=== PATIENT | female | born 1975 | race Caucasian/White ===

== ENCOUNTER 2016-03-27 09:41 | Emergency (ER) | payer BC, OTHER ==
[~2016-03-27] VITALS: Ht 172.7 cm; Wt 63.6 kg
[~2016-03-27 09:41] MED LIST: PROP20 PO
[2016-03-27 09:42] VITALS: BP 181/82; PULSE 202; RESP 17; TEMP 97.7; O2SAT 95
[2016-03-27 09:45] VITALS: BP 131/101; PULSE 134; RESP 20; O2SAT 100
[2016-03-27] MEDS ORDERED: ADENOSINE IV SOLN 3 MG/ML 2 ML VIAL ONE (09:47)
[2016-03-27 09:55] VITALS: BP 131/93; PULSE 107; RESP 18; O2SAT 100
[2016-03-27] MEDS ORDERED: SODIUM CHLORIDE 0.9% FLUSH 5 ML FLUSH IVF PRN (10:15)
--- NOTE | 2016-03-27 10:20 | PD ---
HPI Chief Complaint: Cardiac Complaint Time Seen by Provider: 10:02 Travel History International Travel<30 days: No Contact w/Intl Traveler<30days: No Traveled to known affect area: No History of Present Illness HPI 40-year-old female with history of SVTs, presents to the ER today because she had palpitations at work, and feels that it was her SVT, she had tried to use vagal maneuvers but without success. She denies significant caffeine intake today, is not sure of the trigger. She states that however, it stopped on its own while she was in the ER. She reports feeling improved. She is known by Dr. Mcknight who is in the ER, states that if workup is unremarkable, patient can be released with Lopressor for further treatment. Patient apparently had been on Inderal which was changed to another medication recently. Modifying Factors: None Associated Signs & Symptoms: Palpitation, chest discomfort, fast heart rate Risk Factors: History of SVTs PFSH Past Medical History Bipolar Disorder: Yes Heart Rhythm Problems: Yes (SVT) Cardiovascular Problems: Yes (SVT) Diminished Hearing: No Tetanus Vaccination: Unknown Influenza Vaccination: Yes ?: Not LMP: JAN 2016 : 3 Para: 3 Miscarriage: 0 : 0 Tubal Ligation: Yes Past Surgical History Abdominal Surgery: Yes (EXP LAP) Gynecologic Surgery: Yes (UTERINE SCARRING) Social History Alcohol Use: Yes (RARELY ) Tobacco Use: No Substance Use: No Allergies-Medications (Allergen,Severity, Reaction): Coded Allergies: Penicillin (Verified Allergy, Severe, RASH, 03/27/16) Reported Meds & Prescriptions Reported Meds & Active Scripts Active No Active Prescriptions or Reported Medications Review of Systems Except as stated in HPI: all other systems reviewed are Neg Physical Exam Narrative GENERAL: Well-nourished, well-developed middle age white female patient in no acute distress. SKIN: Warm and dry. HEAD: Normocephalic. EYES: No scleral icterus. No injection or drainage. NECK: Supple, trachea midline. CARDIOVASCULAR: Regular rate and rhythm without murmurs, gallops, or rubs. RESPIRATORY: Breath sounds equal bilaterally. No accessory muscle use. GASTROINTESTINAL: Abdomen soft, non-tender, nondistended. MUSCULOSKELETAL: No cyanosis, or edema. BACK: Nontender without obvious deformity. No CVA tenderness. Data Data Last Documented VS Vital Signs Date Time Temp Pulse Resp B/P Pulse Ox O2 Delivery O2 Flow Rate FiO2 03/27/16 11:33 94 18 104/68 100 Room Air 03/27/16 09:42 97.7 Orders Adenosine Inj (Adenocard Inj) (03/27/16 09:47) Electrocardiogram (03/27/16 10:02) Ckmb (Isoenzyme) Profile (03/27/16 10:02) Complete Blood Count With Diff (03/27/16 10:02) Comprehensive Metabolic Panel (03/27/16 10:02) Magnesium (Mg) (03/27/16 10:02) Prothrombin Time / Inr (Pt) (03/27/16 10:02) Act Partial Throm Time (Ptt) (03/27/16 10:02) Troponin I (03/27/16 10:02) Chest, Single Ap (03/27/16 10:02) Ecg Monitoring (03/27/16 10:02) Bilateral Bp Monitoring (03/27/16 10:02) Iv Access Insert/Monitor (03/27/16 10:02) Oximetry (03/27/16 10:02) Oxygen Administration (03/27/16 10:02) Sodium Chloride 0.9% Flush (Ns Flush) (03/27/16 10:15) Ed Urine Pregnancytest Poc (03/27/16 10:02) Potassium Chloride Eff (K-Lyte Cl Eff) (03/27/16 11:15) Labs Laboratory Tests Test 03/27/16 10:05 White Blood Count 10.7 TH/MM3 Red Blood Count 5.44 MIL/MM3 Hemoglobin 15.2 GM/DL Hematocrit 45.1 % Mean Corpuscular Volume 82.9 FL Mean Corpuscular Hemoglobin 27.9 PG Mean Corpuscular Hemoglobin 33.7 % Concent Red Cell Distribution Width 13.2 % Platelet Count 322 TH/MM3 Mean Platelet Volume 10.5 FL Neutrophils (%) (Auto) 60.2 % Lymphocytes (%) (Auto) 25.7 % Monocytes (%) (Auto) 12.6 % Eosinophils (%) (Auto) 1.0 % Basophils (%) (Auto) 0.5 % Neutrophils # (Auto) 6.4 TH/MM3 Lymphocytes # (Auto) 2.7 TH/MM3 Monocytes # (Auto) 1.3 TH/MM3 Eosinophils # (Auto) 0.1 TH/MM3 Basophils # (Auto) 0.1 TH/MM3 CBC Comment DIFF FINAL Differential Comment Prothrombin Time 10.9 SEC Prothromb Time International 1.0 RATIO Ratio Activated Partial 27.9 SEC Thromboplast Time Sodium Level 139 MEQ/L Potassium Level 3.2 MEQ/L Chloride Level 103 MEQ/L Carbon Dioxide Level 22.2 MEQ/L Anion Gap 14 MEQ/L Blood Urea Nitrogen 6 MG/DL Creatinine 0.93 MG/DL Estimat Glomerular Filtration 66 ML/MIN Rate Random Glucose 109 MG/DL Calcium Level 9.1 MG/DL Magnesium Level 2.3 MG/DL Total Bilirubin 0.6 MG/DL Aspartate Amino Transf 9 U/L (AST/SGOT) Alanine Aminotransferase 16 U/L (ALT/SGPT) Alkaline Phosphatase 60 U/L Total Creatine Kinase 64 U/L Troponin I LESS THAN 0.02 NG/ML Total Protein 8.0 GM/DL Albumin 4.2 GM/DL MDM Medical Decision Making Medical Screen Exam Complete: Yes Emergency Medical Condition: Yes Medical Record Reviewed: Yes Interpretation(s) EKG shows sinus tachycardia at a rate of 127 bpm with no signs of acute ST-T changes. Laboratory Tests Test 03/27/16 10:05 Red Blood Count 5.44 MIL/MM3 (4.00-5.30) Monocytes (%) (Auto) 12.6 % (0.0-8.0) Monocytes # (Auto) 1.3 TH/MM3 (0-0.9) Potassium Level 3.2 MEQ/L (3.5-5.1) Blood Urea Nitrogen 6 MG/DL (7-18) Estimat Glomerular Filtration 66 ML/MIN (>89) Rate Random Glucose 109 MG/DL (74-106) Aspartate Amino Transf 9 U/L (15-37) (AST/SGOT) Troponin I LESS THAN 0.02 NG/ML (0.02-0.05) Last 24 hours Impressions Chest X-Ray 03/27/16 1002 Signed Impressions: Service Date/Time: Sunday, March 27, 2016 10:35 - CONCLUSION: No acute disease. Edwar Holland MD FACR Differential Diagnosis Fast heart rate, palpitationsrule out metabolic issues versus dehydration versus dysrhythmias Narrative Course Lab work shows mildly low potassium. Potassium was given in the ER by mouth. Patient's heart rate came down on its own. Cardiac enzymes are negative. Chest x-ray did not show any signs of acute processes. I have talked to the patient regarding findings and patient initially told me that she did have chest pains for a week. I have offered to admit her to chest pain center for further cardiac evaluation. However, the patient declined stating that she should be up to follow-up in her own office as well. I have talked to the patient regarding the fact that underlying coronary artery disease other cardiac issues cannot be ruled out without further testing. She should return for any worsening and she states understanding. I will give her Lopressor as per discussion previously with Dr. Mcknight. Diagnosis Primary Impression: TACHYCARDIA, UNSPECIFIED Med/Other Pt SpecificInfo: Prescription(s) given Scripts Metoprolol Tartrate (Lopressor)50 Mg Tab25 Mg PO DAILY #15 TAB Ref 0 Prov:Dinesh De Los Santos MD 03/27/16 Disposition: 01 DISCHARGE HOME Condition: Stable Dinesh De Los Santos MD Mar 27, 2016 10:20
[2016-03-27 10:27] LABS: AUTOMATED NEUTROPHIL # 6.4 TH/MM3 (1.8-7.7); BASOPHIL # 0.1 TH/MM3 (0-0.2); BASOPHIL % 0.5 % (0.0-2.0); EOSINOPHIL # 0.1 TH/MM3 (0-0.4); HEMATOCRIT 45.1 % (35.0-46.0); HEMO FLAGS DIFF FINAL; LYMPH % 25.7 % (9.0-44.0); LYMPHOCYTE # 2.7 TH/MM3 (1.0-4.8); MEAN CELL VOLUME 82.9 FL (80.0-100.0); MEAN CORPUSCULAR HEMOGLOBIN 27.9 PG (27.0-34.0); MEAN CORPUSCULAR HGB CONC 33.7 % (32.0-36.0); MONO % 12.6 % (0.0-8.0); NEUT % 60.2 % (16.0-70.0); PLATELET COUNT 322 TH/MM3 (150-450); RED BLOOD COUNT 5.44 MIL/MM3 (4.00-5.30); RED CELL DISTRIBUTION WIDTH 13.2 % (11.6-17.2); WHITE BLOOD COUNT 10.7 TH/MM3 (4.0-11.0)
[2016-03-27 10:35] VITALS: BP 118/89; PULSE 97; RESP 18; O2SAT 100
[2016-03-27 10:36] LABS: APTT (PATIENT) 27.9 SEC (24.3-30.1); PROTHROMBIN TIME - PATIENT 10.9 SEC (9.8-11.6)
[2016-03-27 10:46] LABS: ANION GAP 14 MEQ/L (5-15); AST (GOT) 9 U/L (15-37); BICARBONATE 22.2 MEQ/L (21.0-32.0); BLOOD UREA NITROGEN 6 MG/DL (7-18); CHLORIDE 103 MEQ/L (98-107); GLOMERULAR FILTRATION RATE 66 ML/MIN (>89); MAGNESIUM 2.3 MG/DL (1.5-2.5); POTASSIUM 3.2 MEQ/L (3.5-5.1); SODIUM (NA) 139 MEQ/L (136-145)
[2016-03-27 10:51] LABS: ALKALINE PHOSPHATASE 60 U/L (45-117); ALT (GPT) 16 U/L (10-53); TOTAL BILIRUBIN ADULT 0.6 MG/DL (0.2-1.0)
[2016-03-27 10:52] LABS: CREATINE KINASE 64 U/L (26-192)
[2016-03-27] MEDS ORDERED: POTASSIUM CHLORIDE 25 MEQ EFFERVESCENT TAB PO ONE (11:15)
[2016-03-27 11:33] VITALS: BP 104/68; PULSE 94; RESP 18; O2SAT 100
--- NOTE | 2016-03-27 11:34 | RADRPT ---
EXAM DATE/TIME: 03/27/2016 10:35 [facility] COMPARISON: No previous studies available for comparison. INDICATIONS : Palpitations. MEDICAL HISTORY : Supraventricular tachycardia SURGICAL HISTORY : None. ENCOUNTER: Initial ACUITY: 1 day PAIN SCORE: 0/10 LOCATION: Bilateral chest FINDINGS: A single view of the chest demonstrates the lungs to be symmetrically aerated without evidence of mas s, infiltrate or effusion. The cardiomediastinal contours are unremarkable. Osseous structures are intact. CONCLUSION: No acute disease. Edwar Holland MD FACR on March 27, 2016 at 11:24 Board Certified Radiologist. This report was verified electronically.
[2016-03-27] MEDS ORDERED: METO-309 PO (11:46)
--- NOTE | 2016-03-29 07:13 | EKG ---
Date Performed: 03/27/2016 Time Performed: 09:49:40 PTAGE: 40 years EKG: SINUS TACHYCARDIA ABNORMAL RHYTHM ECG INTERPRETATION BASED ON A DEFAULT AGE OF 39 YEARS PREVIOUS TRACING : 03/08/2015 15.55 Compared to the previous tracing, sinus tachycardia is new DOCTOR: Brandin Arredondo Interpretating Date/Time 03/29/2016 07:10:38
== END 2016-03-27 12:25 | disposition home or self-care (01) ==
LOC: NEPC 09:41
DX: R00.0 Tachycardia, unspecified (principal); E87.6 Hypokalemia; R07.9 Chest pain, unspecified; R94.31 Abnormal electrocardiogram [ECG] [EKG]; Z86.79 Personal history of other diseases of the circulatory system; Z86.59 Personal history of other mental and behavioral disorders
CPT/HCPCS: 71010; 80053; 82550; 83735; 84484; 84703; 85025; 85610; 85730; 93005; 99285; J0153

== ENCOUNTER 2016-10-07 15:52 | Emergency (ER) | payer OTHER ==
[~2016-10-07] VITALS: Ht 175.3 cm; Wt 59.7 kg
[~2016-10-07 15:52] MED LIST changes: +METO-309 PO; -PROP20 PO
[2016-10-07 15:57] VITALS: BP 157/87; PULSE 124; RESP 16; TEMP 98; O2SAT 100
[2016-10-07] MEDS ORDERED: METOPROLOL TARTRATE 25 MG TAB PO ONE (16:30)
--- NOTE | 2016-10-07 16:30 | PD ---
HPI Chief Complaint: Cardiac Complaint Time Seen by Provider: 16:20 Travel History International Travel<30 days: No Contact w/Intl Traveler<30days: No Traveled to known affect area: No History of Present Illness HPI This 41-year-old female is complaining of tachycardia. She has a history of SVT since she was fairly young. She gets an attack almost every day. In the past she has been on various medications. She has been on verapamil, Toprol, atenolol. She was on Inderal at one time and seemed to work well and then stopped working. She's been having it worsening usual today. Her heart rate has been as high as 200. sHe has some tightness in her chest when her heart rate is up. She is on no medications at present. There has been no vomiting or diarrhea. PFSH Past Medical History Bipolar Disorder: Yes Heart Rhythm Problems: Yes (SVT) Cardiovascular Problems: Yes (SVT) Diminished Hearing: No Influenza Vaccination: Yes ?: Not : 3 Para: 3 Miscarriage: 0 : 0 Tubal Ligation: Yes Past Surgical History Abdominal Surgery: Yes (EXP LAP) Gynecologic Surgery: Yes (UTERINE SCARRING) Social History Alcohol Use: Yes (RARELY ) Tobacco Use: No Substance Use: No Allergies-Medications (Allergen,Severity, Reaction): Coded Allergies: Penicillin (Verified Allergy, Severe, RASH, 10/07/16) Reported Meds & Prescriptions Reported Meds & Active Scripts Active Review of Systems General / Constitutional: No: Fever, Chills Eyes: Positive: Blindness (BLIND LEFT EYE SINCE ), No: Diploplia, Blurred Vision HENT: No: Headaches, Vertigo Cardiovascular: Positive: Palpitations, No: Chest Pain or Discomfort, Dyspnea on exertion Respiratory: No: Cough, Shortness of Breath, Wheezing Gastrointestinal: No: Vomiting, Diarrhea Genitourinary: No: Urgency, Frequency Musculoskeletal: No: Myalgias, Arthralgias Skin: No Rash Neurologic: No: Weakness, Dizziness Endocrine: No: Heat Intolerance, Cold Intolerance Hematologic/Lymphatic: No: Easy Bruising Physical Exam Narrative GENERAL: Well-developed female SKIN: Focused skin assessment warm/dry. HEAD: Atraumatic. Normocephalic. EYES:blind left eye, dyconjugate movements. No scleral icterus. No injection or drainage. ENT: No nasal bleeding or discharge. Mucous membranes pink and moist. NECK: Trachea midline. No JVD. CARDIOVASCULAR: Regular rate and rhythm. No murmur appreciated. Heart rate varies from 100 to 130 RESPIRATORY: No accessory muscle use. Clear to auscultation. Breath sounds equal bilaterally. GASTROINTESTINAL: Abdomen soft, non-tender, nondistended. Hepatic and splenic margins not palpable. MUSCULOSKELETAL: No obvious deformities. No clubbing. No cyanosis. No edema. NEUROLOGICAL: Awake and alert. No obvious cranial nerve deficits. Motor grossly within normal limits. Normal speech. PSYCHIATRIC: Appropriate mood and affect; insight and judgment normal. Data Data Last Documented VS Vital Signs Date Time Temp Pulse Resp B/P Pulse Ox O2 Delivery O2 Flow Rate FiO2 10/07/16 16:41 92 16 116/73 100 Room Air 10/07/16 15:57 98.0 Orders Complete Blood Count With Diff (10/07/16 16:20) Basic Metabolic Panel (Bmp) (10/07/16 16:20) Magnesium (Mg) (10/07/16 16:20) Metoprolol Tartrate (Lopressor) (10/07/16 16:30) Potassium Chloride (Kcl) (10/07/16 17:00) Labs Laboratory Tests Test 10/07/16 16:30 White Blood Count 8.4 TH/MM3 Red Blood Count 5.08 MIL/MM3 Hemoglobin 14.0 GM/DL Hematocrit 41.9 % Mean Corpuscular Volume 82.5 FL Mean Corpuscular Hemoglobin 27.6 PG Mean Corpuscular Hemoglobin 33.4 % Concent Red Cell Distribution Width 12.2 % Platelet Count 288 TH/MM3 Mean Platelet Volume 9.4 FL Neutrophils (%) (Auto) 67.6 % Lymphocytes (%) (Auto) 20.8 % Monocytes (%) (Auto) 9.5 % Eosinophils (%) (Auto) 1.2 % Basophils (%) (Auto) 0.9 % Neutrophils # (Auto) 5.6 TH/MM3 Lymphocytes # (Auto) 1.8 TH/MM3 Monocytes # (Auto) 0.8 TH/MM3 Eosinophils # (Auto) 0.1 TH/MM3 Basophils # (Auto) 0.1 TH/MM3 CBC Comment DIFF FINAL Differential Comment Sodium Level 138 MEQ/L Potassium Level 3.4 MEQ/L Chloride Level 103 MEQ/L Carbon Dioxide Level 28.4 MEQ/L Anion Gap 7 MEQ/L Blood Urea Nitrogen 10 MG/DL Creatinine 0.79 MG/DL Estimat Glomerular Filtration 80 ML/MIN Rate Random Glucose 94 MG/DL Calcium Level 9.0 MG/DL Magnesium Level 2.2 MG/DL [facility] Medical Decision Making Medical Screen Exam Complete: Yes Emergency Medical Condition: Yes Medical Record Reviewed: Yes Differential Diagnosis Differential includes SVT, electrolyte imbalance, Narrative Course Initially her heart rate varies between 120. It is a sinus rhythm. She was given metoprolol 25 mg and her heart rate is come down to about 75-80. Potassium is 3.4 and she has been given some supplemental potassium. She is stable for discharge. I will prescribe metoprolol 25 twice a day though she may take it on an as-needed basis. Diagnosis Primary Impression: Paroxysmal SVT (supraventricular tachycardia) Scripts Metoprolol Tartrate 25 Mg Tab25 Mg PO BID #60 TAB Ref 0 Prov:Norm Duff MD 10/07/16 Disposition: 01 DISCHARGE HOME Condition: Stable Norm Duff MD Oct 07, 2016 16:30
[2016-10-07 16:38] LABS: AUTOMATED NEUTROPHIL # 5.6 TH/MM3 (1.8-7.7); BASOPHIL # 0.1 TH/MM3 (0-0.2); BASOPHIL % 0.9 % (0.0-2.0); EOSINOPHIL # 0.1 TH/MM3 (0-0.4); EOSINOPHIL % 1.2 % (0.0-4.0); HEMATOCRIT 41.9 % (35.0-46.0); HEMO FLAGS DIFF FINAL; LYMPH % 20.8 % (9.0-44.0); LYMPHOCYTE # 1.8 TH/MM3 (1.0-4.8); MEAN CELL VOLUME 82.5 FL (80.0-100.0); MEAN CORPUSCULAR HEMOGLOBIN 27.6 PG (27.0-34.0); MEAN CORPUSCULAR HGB CONC 33.4 % (32.0-36.0); MONO % 9.5 % (0.0-8.0); NEUT % 67.6 % (16.0-70.0); PLATELET COUNT 288 TH/MM3 (150-450); RED BLOOD COUNT 5.08 MIL/MM3 (4.00-5.30); RED CELL DISTRIBUTION WIDTH 12.2 % (11.6-17.2); WHITE BLOOD COUNT 8.4 TH/MM3 (4.0-11.0)
[2016-10-07 16:41] VITALS: BP 116/73; PULSE 92; RESP 16; O2SAT 100
[2016-10-07 16:46] LABS: POTASSIUM 3.4 MEQ/L (3.5-5.1)
[2016-10-07 16:50] LABS: BICARBONATE 28.4 MEQ/L (21.0-32.0); MAGNESIUM 2.2 MG/DL (1.5-2.5)
[2016-10-07] MEDS ORDERED: POTASSIUM CHLORIDE 20 MEQ CONTROLLED RELEASE TAB PO ONE (17:00)
[2016-10-07] MEDS ORDERED: METO25TA3 PO (17:15)
--- NOTE | 2016-10-08 05:13 | EKG ---
Date Performed: 10/07/2016 Time Performed: 16:05:50 PTAGE: 41 years EKG: SINUS TACHYCARDIA ABNORMAL RHYTHM ECG INTERPRETATION BASED ON A DEFAULT AGE OF 39 YEARS Com pared to prior tracing no significant change PREVIOUS TRACING : 03/27/2016 09.49 DOCTOR: William Brown Interpretating Date/Time 10/08/2016 05:11:20
== END 2016-10-07 17:26 | disposition home or self-care (01) ==
LOC: PHED 15:52
DX: I47.1 Supraventricular tachycardia (principal)
CPT/HCPCS: 80048; 83735; 85025; 93005; 99283

== ENCOUNTER 2017-04-05 13:20 | Emergency (ER) | payer SELFPAY ==
[~2017-04-05] VITALS: Ht 172.7 cm; Wt 61.0 kg
[~2017-04-05 13:20] MED LIST changes: -METO-309 PO; +METO25TA3 PO
[2017-04-05 13:32] VITALS: BP 118/77; PULSE 145; RESP 18; TEMP 98.4; O2SAT 99
--- NOTE | 2017-04-05 14:01 | PD ---
HPI Chief Complaint: Cardiac Complaint Time Seen by Provider: 13:36 Travel History International Travel<30 days: No Contact w/Intl Traveler<30days: No Traveled to known affect area: No History of Present Illness HPI 41-year-old female complains of heart racing. Patient has history of SVT. Patient's son metoprolol 25 g twice a day. Patient on metoprolol 25 mg prior to arrival. Patient denies any headache. Patient denies any chest pain or shortness of breath. Patient denies abdominal pain. Patient denies any excessive caffeine intake recently. PFSH Past Medical History Bipolar Disorder: Yes Heart Rhythm Problems: Yes (SVT) Cardiovascular Problems: Yes Diminished Hearing: No Influenza Vaccination: Yes ?: Not LMP: 02/2017 : 3 Para: 3 Miscarriage: 0 : 0 Tubal Ligation: Yes Past Surgical History Abdominal Surgery: Yes (EXP LAP) Gynecologic Surgery: Yes (UTERINE SCARRING) Social History Alcohol Use: Yes (RARELY ) Tobacco Use: No Substance Use: No Allergies-Medications (Allergen,Severity, Reaction): Coded Allergies: penicillin G (Unverified Allergy, Severe, RASH, 10/08/16) Reported Meds & Prescriptions Reported Meds & Active Scripts Active Metoprolol Tartrate 25 Mg Tab 25 Mg PO BID Review of Systems General / Constitutional: No: Fever Eyes: No: Visual changes HENT: No: Headaches Cardiovascular: Positive: Tachycardia, No: Chest Pain or Discomfort Respiratory: No: Shortness of Breath Gastrointestinal: No: Abdominal Pain Genitourinary: No: Dysuria Musculoskeletal: No: Pain Skin: No Rash Neurologic: No: Weakness Psychiatric: No: Depression Endocrine: No: Polydipsia Hematologic/Lymphatic: No: Easy Bruising Physical Exam Narrative GENERAL: Well-nourished, well-developed patient. SKIN: Focused skin assessment warm/dry. HEAD: Normocephalic. EYES: No scleral icterus. No injection or drainage. NECK: Supple, trachea midline. No JVD or lymphadenopathy. CARDIOVASCULAR: Tachycardia rate and rhythm without murmurs, gallops, or rubs. RESPIRATORY: Breath sounds equal bilaterally. No accessory muscle use. GASTROINTESTINAL: Abdomen soft, non-tender, nondistended. MUSCULOSKELETAL: No cyanosis, or edema. BACK: Nontender without obvious deformity. No CVA tenderness. Data Data Last Documented VS Vital Signs Date Time Temp Pulse Resp B/P (MAP) Pulse Ox O2 Delivery O2 Flow Rate FiO2 04/05/17 13:34 145 18 99 Room Air 04/05/17 13:32 98.4 118/77 (91) MDM Medical Decision Making Medical Screen Exam Complete: Yes Emergency Medical Condition: Yes Differential Diagnosis Differential diagnosis including SVT. Narrative Course 41-year-old female with tachycardia. History of SVT. EKG showed SVT. Carotid massage performed. Patient converted to sinus rhythm, rate in the 80s. Diagnosis Primary Impression: Paroxysmal SVT (supraventricular tachycardia) Patient Instructions: General Instructions Additional Instructions: Continue with metoprolol as directed. Follow-up with personal physician. Return if worse. Med/Other Pt SpecificInfo: No Change to Meds Disposition: 01 DISCHARGE HOME Condition: Stable Arnoldo Jha MD Apr 05, 2017 14:01
--- NOTE | 2017-04-06 17:38 | EKG ---
Date Performed: 04/05/2017 Time Performed: 13:34:58 PTAGE: 41 years EKG: SUPRAVENTRICULAR TACHYCARDIA ABNORMAL RHYTHM ECG Compared to prior tracing, now in regular SVT DOCTOR: Kev Marrero Interpretating Date/Time 04/06/2017 17:37:30
== END 2017-04-05 14:33 | disposition home or self-care (01) ==
LOC: PHED 13:20
DX: I47.1 Supraventricular tachycardia (principal); F31.9 Bipolar disorder, unspecified; R94.31 Abnormal electrocardiogram [ECG] [EKG]; Z88.0 Allergy status to penicillin
CPT/HCPCS: 93005; 99283